=== PATIENT | female | born 1930 | race Caucasian/White ===

== ENCOUNTER 2016-08-31 06:30 | Inpatient (IN) ==
[2016-08-31] MEDS ORDERED: 0.9 % SODIUM CHLORIDE 1,000 ML IV ONE (06:55)
[2016-08-31] MEDS ORDERED: ONDANSETRON 4 MG/2 ML VIAL IV ONE (06:55)
[2016-08-31] MEDS ORDERED: diphenhydrAMINE 50 MG/ML VIAL IV ONE (06:55)
[2016-08-31] MEDS ORDERED: methylPREDNISolone SOD SUCC 125 MG/2 ML VIAL IV ONE (06:55)
--- NOTE | 2016-08-31 06:55 | Emergency Department Note ---
General Adult HPI - General Chief complaint: Skin/Abscess/Foreign Body Stated complaint: rash Time Seen by Provider: 08/31/16 06:51 Source: patient Mode of arrival: wheelchair Limitations: no limitations - History of Present Illness HPI Narrative: This patient was seen here 2 days ago with a urinary tract infection. She has developed a rash over her body which looks like hives. Continues to have a low- grade fever. Onset (ago): hour(s) Severity: moderate Quality: other (itching) Consistency: constant Improves with: none Worsens with: none - Related Data Home Medications Medication Instructions Recorded Confirmed cyanocobalamin (vitamin B-12) 2,500 mcg PO QDAY 06/22/16 07/05/16 2,500 mcg tablet Previous Rx's Medication Instructions Recorded Disabled Parking Permit #1 each 09/22/15 clopidogrel 75 mg tablet 75 mg PO QDAY #90 tab 10/05/15 OneTouch Verio strips See Dose Instructions .ROUTE 11/23/15 .MEDSUPPLY #100 each NS tiotropium bromide 18 mcg capsule 18 mcg INHALATION QDAY #60 puff 01/03/16 with inhalation device venlafaxine ER 75 mg 75 mg PO QDAY 90 Days 06/13/16 capsule,extended release 24 hr acetaminophen 120 mg-codeine 12 5 ml PO QID PRN #120 ml 06/14/16 mg/5 mL (5 mL) oral solution lidocaine 5 % topical patch 1 patch TOPICAL Q24H #10 patch 06/19/16 albuterol sulfate HFA 90 2 puff INHALATION .Q4-6H PRN #18 g 07/04/16 mcg/actuation aerosol inhaler levothyroxine 50 mcg capsule 50 mcg PO QDAY 90 Days 07/19/16 losartan 50 mg tablet 50 mg PO BID 90 Days 07/19/16 amlodipine 5 mg tablet 5 mg PO QDAY 90 Days 07/31/16 fluticasone 200 mcg-vilanterol 25 1 inh INHALATION QDAY #30 each 08/02/16 mcg/dose powder for inhalation oxycodone-acetaminophen 5 mg-325 1 tab PO BID 30 Days 08/04/16 mg tablet atorvastatin 80 mg tablet 80 mg PO QHS 90 Days 08/07/16 metformin 1,000 mg tablet 1,000 mg PO TID 90 Days 08/07/16 Allergies Allergy/AdvReac Type Severity Reaction Status Date / Time aspirin Allergy Swelling Verified 07/05/16 11:37 fluoxetine Allergy Delirium Verified 07/05/16 11:37 hydrocodone Allergy unknown Verified 07/05/16 11:37 lisinopril Allergy unknown Verified 07/05/16 11:37 Tetracycline Allergy unknown Verified 07/05/16 11:37 Review of Systems Constitutional: Reports: fever, chills Eyes: Denies: eye pain ENT ED: Denies: ear pain Cardiovascular: Denies: chest pain Respiratory: Denies: cough Gastrointestinal: Reports: nausea. Denies: abdominal pain Genitourinary: Denies: urgency Musculoskeletal: Denies: back pain Integumentary: Reports: rash Neurological: Denies: headache Past Medical History - Past Medical History Medical history: Reports: COPD, diabetes, GERD, hypertension, osteoporosis Physical Exam - General Limitations: no limitations General appearance: alert, in no apparent distress - Head Head exam: atraumatic, normocephalic - Eye Eye exam: Present: normal appearance - ENT ENT exam: normal exam - Neck Neck exam: Present: normal inspection - Chest Chest inspection: Present: normal inspection - Respiratory Respiratory exam: Present: other (some right upper lobe rhonchi). Absent: respiratory distress, wheezes - Cardiovascular Cardiovascular exam: Present: regular rate, normal rhythm, normal heart sounds - Abdominal Exam Abdominal exam: Present: soft. Absent: distention, tenderness - Neurological Exam Neurological exam: Present: alert - Psychiatric Psychiatric exam: Present: normal affect, normal mood - Skin Skin exam: Present: warm, dry, rash Course Vital Signs Temperature 100.6 F H 08/31/16 06:30 Pulse Rate 104 H 08/31/16 06:30 Respiratory Rate 19 08/31/16 06:30 Blood Pressure 114/79 08/31/16 06:30 Pulse Oximetry (%) 95 08/31/16 06:30 Temperature 100.6 F H 08/31/16 06:30 Pulse Rate 83 08/31/16 08:34 Respiratory Rate 19 08/31/16 06:30 Blood Pressure 135/49 08/31/16 08:34 Pulse Oximetry (%) 97 08/31/16 08:34 Medical Decision Making - Lab Data Lab results reviewed: Yes I reviewed the patient's lab results. Result diagrams: 08/31/16 07:00 08/31/16 07:00 Lab Results 08/31/16 08/31/16 08/31/16 Range/Units 07:00 07:00 07:00 WBC 13.2 H (4.5-11.0) K/mcL RBC 3.22 L (4.00-5.20) M/mcL Hgb 9.8 L (12.0-15.0) g/dL Hct 30.3 L (36.0-48.0) % MCV 94.3 (80.0-100.0) fL MCH 30.5 (26.0-34.0) pg MCHC 32.4 (31.0-36.0) g/dL RDW 14.1 (11.5-14.5) % Plt Count 407 (140-440) K/mcL MPV 7.1 L (7.4-10.4) fL Gran % 79.4 H (38.0-78.0) % Lymph % (Auto) 8.5 L (15.5-49.0) % [place] % (Auto) 11.2 H (1.0-9.0) % Eos % (Auto) 0.6 (0.0-7.0) % Baso % (Auto) 0.3 (0.0-2.0) % Gran # 10.5 H (1.8-8.0) K/mcL Lymph # 1.1 L (1.5-4.8) K/mcL [place] # 1.5 H (0.1-0.9) K/mcL Eos # 0.1 (0.0-0.7) K/mcL Baso # 0 (0.0-0.3) K/mcL VBG Lactic Acid 1.4 (0.5-2.2) mmol/L Sodium 128 L (133-145) mmol/L Potassium 4.3 (3.3-5.1) mmol/L Chloride 88 L (96-108) mmol/L Carbon Dioxide 25 (22-30) mmol/L Anion Gap 15.0 (8-16) BUN 8 (8-23) mg/dl Creatinine 0.8 (0.6-1.1) mg/dl GFR Calculation 67 Glucose 279 H (70-105) mg/dL Calcium 8.9 (8.6-10.4) mg/dl Total Bilirubin 0.5 (0.0-1.0) mg/dL AST 17 (0-37) U/l ALT 12 (0-40) U/l Alkaline Phosphatase 78 (39-117) U/L Total Protein 6.8 (5.9-8.4) gm/dL Albumin 3.5 (3.2-5.2) gm/dL Globulin 3.3 (2.2-3.7) gm/dL Albumin/Globulin Ratio 1.1 (1.0-2.3) Urine Color Urine Appearance Urine pH (5.0-9.0) Ur Specific [place] (1.000-1.035) Urine Protein (NEG) mg/dL Urine Glucose (UA) (NEG) mg/dL Urine Ketones (NEG) mg/dL Urine Occult Blood (<0.03) mg/dL Urine Nitrate (NEG) Urine Bilirubin (NEG) mg/dL Urine Urobilinogen (NEG) mg/dL Ur Leukocyte Esterase (NEG) /uL Ur Culture Indicated? 08/31/16 Range/Units 07:02 WBC (4.5-11.0) K/mcL RBC (4.00-5.20) M/mcL Hgb (12.0-15.0) g/dL Hct (36.0-48.0) % MCV (80.0-100.0) fL MCH (26.0-34.0) pg MCHC (31.0-36.0) g/dL RDW (11.5-14.5) % Plt Count (140-440) K/mcL MPV (7.4-10.4) fL Gran % (38.0-78.0) % Lymph % (Auto) (15.5-49.0) % [place] % (Auto) (1.0-9.0) % Eos % (Auto) (0.0-7.0) % Baso % (Auto) (0.0-2.0) % Gran # (1.8-8.0) K/mcL Lymph # (1.5-4.8) K/mcL [place] # (0.1-0.9) K/mcL Eos # (0.0-0.7) K/mcL Baso # (0.0-0.3) K/mcL VBG Lactic Acid (0.5-2.2) mmol/L Sodium (133-145) mmol/L Potassium (3.3-5.1) mmol/L Chloride (96-108) mmol/L Carbon Dioxide (22-30) mmol/L Anion Gap (8-16) BUN (8-23) mg/dl Creatinine (0.6-1.1) mg/dl GFR Calculation Glucose (70-105) mg/dL Calcium (8.6-10.4) mg/dl Total Bilirubin (0.0-1.0) mg/dL AST (0-37) U/l ALT (0-40) U/l Alkaline Phosphatase (39-117) U/L Total Protein (5.9-8.4) gm/dL Albumin (3.2-5.2) gm/dL Globulin (2.2-3.7) gm/dL Albumin/Globulin Ratio (1.0-2.3) Urine Color Straw Urine Appearance Clear Urine pH 6.0 (5.0-9.0) Ur Specific [place] 1.004 (1.000-1.035) Urine Protein Neg (NEG) mg/dL Urine Glucose (UA) 50 A (NEG) mg/dL Urine Ketones Neg (NEG) mg/dL Urine Occult Blood Neg (<0.03) mg/dL Urine Nitrate Neg (NEG) Urine Bilirubin Neg (NEG) mg/dL Urine Urobilinogen Neg (NEG) mg/dL Ur Leukocyte Esterase Neg (NEG) /uL Ur Culture Indicated? No - Radiology Data Radiology results reviewed: Yes I reviewed the patient's radiology results. ( chest x-ray shows a right upper lobe consolidation. This is new since June) Disposition Clinical Impression: Pneumonia Disposition: Xfer As Inpt ([facility]) Condition: Fair Referrals: Earle Renteria MD [Primary Care Provider] - Time of Disposition: 08:39
[2016-08-31 07:42] LABS: Appearance,Urine CLEAR; Bilirubin,Urine NEG (NEG); Color,Urine STRAW; Glucose,Urine (UA) 50 mg/dL (NEG); Leukocyte Esterase,Urine NEG /uL (NEG); Nitrate,Urine NEG (NEG); Protein,Urine NEG (NEG); Specific Gravity,Urine 1.004 (1.000-1.035); Urine Blood NEG mg/dL (<0.03); Urobilinogen,Urine NEG (NEG)
[2016-08-31 07:42] LABS: Basophils # (Auto) 0 K/mcL (0.0-0.3); Basophils % (Auto) 0.3 % (0.0-2.0); Eosinophils # (Auto) 0.1 K/mcL (0.0-0.7); Eosinophils % (Auto) 0.6 % (0.0-7.0); Granulocytes % (Auto) 79.4 % (38.0-78.0); Lymphocytes # (Auto) 1.1 K/mcL (1.5-4.8); Lymphocytes % (Auto) 8.5 % (15.5-49.0); Mean Cell Volume 94.3 fL (80.0-100.0); Mean Corpuscular HGB Conc 32.4 g/dL (31.0-36.0); Mean Corpuscular Hemoglobin 30.5 pg (26.0-34.0); Monocytes # (Auto) 1.5 K/mcL (0.1-0.9); Monocytes % (Auto) 11.2 % (1.0-9.0); Platelet Count 407 K/mcL (140-440); RBC 3.22 M/mcL (4.00-5.20); Red Cell Distribution Width 14.1 % (11.5-14.5)
[2016-08-31 08:05] LABS: ALT/SGPT 12 U/l (0-40); Albumin 3.5 gm/dL (3.2-5.2); Albumin/Globulin Ratio 1.1 (1.0-2.3); Alkaline Phosphatase 78 U/L (39-117); Blood Urea Nitrogen 8 mg/dl (8-23)
--- NOTE | 2016-08-31 08:13 | XRay Report ---
CLINICAL INFORMATION: Hypoxia TECHNIQUE: AP and lateral views obtained with the patient on a stretcher COMPARISON: Previous chest x-rays dated 08/29/2016 and 06/22/2016 FINDINGS: Left lung remains clear. No interval change. Persistent consolidation in the right upper lobe. This involves the anterior segment. Consolidation may be slightly more dense than on previous examination. Patient remains consistent with pneumonia. No abnormality was demonstrated on 06/22/2016 which makes post obstructive pneumonia secondary to neoplasm less likely. Continued follow-up radiographs are recommended. CT may be helpful to evaluate the right hilar region. No significant pleural effusion. Heart size and vascularity are normal. No pulmonary congestion. No pulmonary edema. IMPRESSION: 1. Consolidation in the anterior segment of the right upper lobe, essentially unchanged since 08/29/2016. 2. No new abnormalities. 3. Continued radiographic follow-up recommended. Interpreted and Authenticated by: Barrie Griffith 08/31/16
[2016-08-31] MEDS ORDERED: AZITHROMYCIN 500 MG in DEXTROSE 5% IN WATER 250 ML IV ONE (08:38)
[2016-08-31] MEDS ORDERED: cefTRIAXone 1 GM in DEXTROSE 5% IN WATER 50 ML IV ONE ×2 (08:38→13:00)
[2016-08-31] MEDS ORDERED: DEXTROSE 50% 50 ML VIAL IV PRN (10:18)
[2016-08-31] MEDS ORDERED: guaiFENesin/CODEINE 10 ML UDC PO PRN (10:18)
[2016-08-31] MEDS ORDERED: cefTRIAXone 2 GM in DEXTROSE 5% IN WATER 50 ML IV SCH (10:18)
[2016-08-31] MEDS ORDERED: ONDANSETRON 4 MG/2 ML VIAL IV PRN (10:18)
[2016-08-31] MEDS ORDERED: traZODone HCL 50 MG TABLET PO PRN (10:18)
[2016-08-31] MEDS ORDERED: MAGNESIUM SULFATE 2 GM/50 ML BAG IV PRN (10:18)
[2016-08-31] MEDS ORDERED: AZITHROMYCIN 500 MG in DEXTROSE 5% IN WATER 250 ML IV SCH (10:18)
[2016-08-31] MEDS ORDERED: POTASSIUM CHLORIDE 20 MEQ PACKET PO PRN (10:18)
[2016-08-31 10:39] LABS: C-Reactive Protein 14.4 mg/dl (0.0-0.8)
[2016-08-31] MEDS: 0.9 % SODIUM CHLORIDE 1,000 ML IV SCH (11:02)
[2016-08-31] MEDS: INSULIN LISPRO 1 UNIT/0.01 ML UNIT SQ SCH ×5 (11:03→23:14)
[2016-08-31] MEDS ORDERED: IPRATROPIUM/ALBUTEROL 3 ML AMPUL.NEB NEB ONE ×4 (11:06→22:07)
[2016-08-31] MEDS ORDERED: INSULIN LISPRO 1 UNIT/0.01 ML UNIT SQ ONE ×2 (11:38→20:31)
[2016-08-31] MEDS: IPRATROPIUM/ALBUTEROL 3 ML AMPUL.NEB NEB SCH ×4 (11:53→22:09)
--- NOTE | 2016-08-31 13:24 | History and Physical Report ---
DATE OF ADMISSION: 08/31/2016 REASON FOR ADMISSION: Worsening shortness of breath, fever or rash. HISTORY OF CHIEF COMPLAINT: The patient is an 86-year-old who was recently evaluated at [facility] ER and was diagnosed with UTI and discharged on ciprofloxacin. The patient, however, over the next couple of days has developed extensive rashes along with increasing shortness of breath. She comes back to [facility] Emergency Room where initial workup was significant for right upper lobe pneumonia, but negative UA. Antibiotic was switched to azithromycin/Rocephin in light of quinolone hypersensitivity reaction. Hospitalist Service was consulted in light of advanced age, right upper lobe pneumonia and failure to improve symptoms. At the time of examination, the patient is alert and oriented. She denies active distress. She is hard of hearing. She endorses to low grade fever, but denies shaking chills, drenching sweats, diarrhea, dysuria, headache, or photophobia. She further denies chest pain or palpitations. She does endorse to sick contacts. She is up to date on pneumonia vaccine. REVIEW OF SYSTEMS: Ten-point review of system was performed and negative except the ones discussed above. PAST MEDICAL HISTORY: 1. History of coronary artery disease. 2. Anxiety disorder. 3. Degenerative joint disease. 4. Hypothyroidism. 5. Hypertension. 6. Allergic rhinitis. 7. Hyperlipidemia. 8. Diabetes mellitus type 2. ALLERGIES: 1. ASPIRIN. 2. FLUXETINE. 3. LISINOPRIL. 4. TETRACYCLINE. 5. QUINOLONES. FAMILY HISTORY: Diabetes, [place]/CVA in son. SOCIAL HISTORY: No history of smoking or alcoholism. PHYSICAL EXAMINATION: GENERAL: The patient is hard of hearing but not in distress. BMI 19. Height 5 feet. VITAL SIGNS: Blood pressure 115/64, respiration rate 18, temperature 98.6, pulse 90, saturation 97% on 1 liter of oxygen. HEENT: Pupils symmetric. Oral cavity is dry. No ear or nose discharge. Head is normocephalic and atraumatic. NECK: No lymphadenopathy. HEART: S1, S2, regular rhythm. No murmur appreciated. Diminished breath sounds at bases, right anterior upper chest bronchial breath sounds. ABDOMEN: Soft and nontender. LOWER EXTREMITIES: No cyanosis or clubbing. No joint swelling. SKIN: No suspicious lesions. PSYCH: Alert, cooperative, and hard of hearing, but no agitation or hallucination. NEURO: Moving all 4 extremities, normal higher function. LABS AND IMAGING: White count 13.2, hemoglobin 9.8, neutrophils 80%, ESR 93. Lactic acid 1.4, sodium 120, potassium 4.3, creatinine 0.8, and BUN 8. Procalcitonin 0.26. CRP 14.4. UA unremarkable. X-ray chest: Consolidation in the anterior segment of right upper lobe. ASSESSMENT AND PLAN: An 86-year-old admitted with hypoxia along with rash secondary to drug hypersensitivity. 1. Community-acquired pneumonia. Continue antibiotic coverage with azithromycin/Rocephin and yu culture sputum exam, check strep pneumo and mycoplasma and also rule out noninfectious etiologies consolidation including mass lesion with a CT angiogram chest in the morning 2. Hypoxia secondary to above. Continue supplemental oxygen and pulmonary toilet. 3. Drug hypersensitivity, rash. List quinolones on allergy list. 4. Other prior medical issues will be managed on home medications, including history of coronary artery disease. Continue Plavix and statin along with NGA inhibitor. 5. Anxiety disorder. Continue venlafaxine. 6. Diabetes mellitus type 2. Continue sitagliptin/prandial insulin. 7. Hypertension. Continue losartan and amlodipine. PLAN FOR TODAY: 1. Admit as inpatient in light of CURB-65 score of 2 and pneumonia severity index 100. 2. Antibiotic coverage. 3. Preexisting medical condition management as above. AA:teodoro Job ID: [id number] Doc ID: [id number] Martinez LEWIS
[2016-08-31] MEDS: 0.9 % SODIUM CHLORIDE 10 ML SYRINGE IV SCH ×2 (15:44→21:43)
[2016-08-31] MEDS ORDERED: ACETAMINOPHEN 325 MG TABLET PO ONE (20:31)
[2016-08-31] MEDS: ACETAMINOPHEN 325 MG TABLET PO PRN (20:38)
[2016-08-31] MEDS ORDERED: DOCUSATE SODIUM 100 MG CAPSULE PO SCH (21:00)
[2016-08-31] MEDS ORDERED: SENNOSIDES/DOCUSATE SODIUM 1 TAB TABLET PO SCH (21:00)
[2016-08-31] MEDS ORDERED: HEPARIN 5,000 UNIT/ML VIAL SQ SCH (21:00)
[2016-08-31] MEDS: SENNOSIDES/DOCUSATE SODIUM 1 TAB TABLET PO SCH (21:42)
[2016-08-31] MEDS: DOCUSATE SODIUM 100 MG CAPSULE PO SCH (21:42)
[2016-08-31] MEDS: HEPARIN 5,000 UNIT/ML VIAL SQ SCH (21:42)
[2016-09-01] MEDS: ACETAMINOPHEN 1,000 MG/100 ML BOTTLE IV PRN (02:11)
[2016-09-01] MEDS: IPRATROPIUM/ALBUTEROL 3 ML AMPUL.NEB NEB SCH ×5 (02:38→23:30)
[2016-09-01] MEDS: 0.9 % SODIUM CHLORIDE 10 ML SYRINGE IV SCH ×3 (05:05→21:04)
[2016-09-01] MEDS ORDERED: IOPAMIDOL 100 ML BOTTLE IJ ONE (08:08)
[2016-09-01] MEDS ORDERED: ACETAMINOPHEN W/CODEINE 5 ML ORAL.SOL PO PRN (08:26)
[2016-09-01] MEDS: 0.9 % SODIUM CHLORIDE 1,000 ML IV SCH (08:37)
[2016-09-01] MEDS ORDERED: LOSARTAN 50 MG TABLET PO SCH (09:00)
[2016-09-01] MEDS ORDERED: sitaGLIPtin 100 MG TABLET PO SCH ×2 (09:00)
--- NOTE | 2016-09-01 09:17 | Cat Scan Report ---
CLINICAL INFORMATION: Right upper lobe pneumonia. COMPARISON: Previous chest x-rays dated 08/31/2016, 08/29/2016, 06/22/2016 TECHNIQUE: Axial contrast enhanced images through the chest. Sagittally and coronally reformatted images. MIP reformatted images. 60 mL nonionic contrast material injected intravenously. FINDINGS: Partial collapse and consolidation of the anterior segment of the right upper lobe. Appearance is consistent with pneumonia. No central obstructing lesion. No detectable endobronchial lesion. There is patchy infiltrate throughout the right upper lobe. There are noncalcified pulmonary parenchymal nodules in the right upper lobe. These are probably inflammatory. Follow-up CT scan is recommended. Left lung is negative. Right lower lobe is negative although there is compressive atelectasis. Bilateral pleural effusions. Right pleural effusion is moderate. Left pleural effusion is small. No evidence for loculation, no septations. No gas bubbles. No CT evidence for empyema. No hilar or mediastinal lymphadenopathy. No axillary adenopathy. No significant pleural effusion. There is calcified coronary artery disease. IMPRESSION: 1. Consolidation and volume loss. This is predominantly in the anterior segment of the right upper lobe. Patchy infiltrates throughout the right upper lobe with some nodularity. Appearance is consistent with pneumonia and follow-up CT scan is recommended 2. No central mass. No detectable endobronchial lesion 3. Bilateral pleural effusions, right larger than left. Interpreted and Authenticated by: Barrie Griffith 09/01/16
[2016-09-01] MEDS: diphenhydrAMINE 25 MG CAPSULE PO PRN ×2 (09:44→13:42)
[2016-09-01 09:59] LABS: Mean Cell Volume 94.9 fL (80.0-100.0); Mean Corpuscular HGB Conc 31.5 g/dL (31.0-36.0); Mean Corpuscular Hemoglobin 29.9 pg (26.0-34.0); Platelet Count 564 K/mcL (140-440); RBC 3.34 M/mcL (4.00-5.20); Red Cell Distribution Width 14.2 % (11.5-14.5)
[2016-09-01] MEDS: HEPARIN 5,000 UNIT/ML VIAL SQ SCH ×2 (10:14→20:59)
[2016-09-01] MEDS: DOCUSATE SODIUM 100 MG CAPSULE PO SCH ×2 (10:15→20:59)
[2016-09-01] MEDS: CLOPIDOGREL 75 MG TABLET PO SCH (10:15)
[2016-09-01] MEDS: LEVOTHYROXINE 50 MCG TABLET PO SCH (10:15)
[2016-09-01] MEDS: VENLAFAXINE 75 MG CAP.XL.24H PO SCH (10:15)
[2016-09-01] MEDS: amLODIPine 5 MG TABLET PO SCH (10:15)
[2016-09-01 10:25] LABS: ALT/SGPT 15 U/l (0-40); Albumin 3.2 gm/dL (3.2-5.2); Albumin/Globulin Ratio 0.9 (1.0-2.3); Alkaline Phosphatase 90 U/L (39-117); Bilirubin,Direct < 0.2 mg/dL (0.0-0.3); Blood Urea Nitrogen 11 mg/dl (8-23); Gamma Glutamyl Transpeptidase 22 U/L (5-36); Magnesium 1.4 mg/dL (1.6-2.5); Phosphorous 2.4 mg/dL (2.7-4.5); Uric Acid 3.5 mg/dL (2.5-8.0)
[2016-09-01] MEDS: MULTIVIT,THER IRON,CA,FA & MIN 1 TABLET PO SCH (10:36)
[2016-09-01] MEDS: cefTRIAXone 2 GM in DEXTROSE 5% IN WATER 50 ML IV SCH (10:36)
[2016-09-01 10:45] LABS: Acanthocytes OCC (NONE SEEN); Band Neutrophils % 6 % (0-10); Lymphocytes % 14 % (15-49); Monocytes % (Manual) 11 % (1-9); Myelocytes % 1 % (0-0); Platelet Estimate INCREASED (NORMAL); RBC Morphology ABNORMAL (NORMAL); Segmented Neutrophils % 68 % (38-78)
[2016-09-01] MEDS: TIOTROPIUM BROMIDE 18 MCG INHALANT INH SCH (10:50)
[2016-09-01] MEDS: INSULIN LISPRO 1 UNIT/0.01 ML UNIT SQ SCH ×5 (11:09→21:00)
--- NOTE | 2016-09-01 11:15 | Internal Med Progress Note ---
Medical - PN: Subj Patient information: Note initiated : 09/01/16 at 11:13 am Service Date, if different from initiated Date: [] Patient: Kaylen Alvarado 86 y/o F admitted on 08/31/16 for Pneumona, Hypoxia, Drug Hypersensitivity Rash. Chief Complaint: [] Interval history: 08/31-patient admitted with severe sepsis right upper lobe pneumonia along with acute drug reaction from quinolone. admitted as inpatient. On Zithromax/ Rocephin. Continue physical therapy. CT chest in a.m.to evaluate mass lesion. Continue as needed antihistamines for urticaria 09/01- white count and 19.4 up from 13.2. Patient however clinically feels better. continue antihistamines. Continue physical therapy. Case management to arrange SNF transfer. - Constitutional Vitals: Vital Signs Temp Pulse Resp BP Pulse Ox 97.4 F L 99 H 20 145/73 91 09/01/16 08:11 09/01/16 03:05 09/01/16 08:11 09/01/16 08:11 09/01/16 08:11 Period Temp Pulse Resp BP Sys/Serrano Pulse Ox Last 24 Hr 97.4 F-99.2 F 83-105 12-20 106-145/56-73 91-99 Intake and Output 08/31/16 09/01/16 09/01/16 21:59 05:59 13:59 Intake Total 240 / 240 350 / 350 1240 / 1240 Output Total 400 / 400 275 / 275 300 / 300 Balance -160 / -160 75 / 75 940 / 940 Weight 97 lb 8 oz Intake & Output: Intake & Output 08/31/16 09/01/16 09/01/16 21:59 05:59 13:59 Intake Total 240 / 240 350 / 350 1240 / 1240 Output Total 400 / 400 275 / 275 300 / 300 Balance -160 / -160 75 / 75 940 / 940 Weight 97 lb 8 oz Intake: IV 1000 / 1000 Sodium Chloride 0.9% 1, 1000 / 1000 000 ml @ 50 mls/hr IV . Q20H [facility] Rx#:[id number] Oral 240 / 240 350 / 350 240 / 240 Output: Void Amount 400 / 400 275 / 275 300 / 300 Other: Meal Dinner Breakfast Percent of Meal Consumed 50% 50% Feeding Ability Assist with Tray Set Up # Voids 1 # Bowel Movements 1 1 General appearance: cooperative, no acute distress Exam: generalized itching with urticarial lesions back and arm minimall anxiety nonlabored breathing abdomen soft Medical - PN: Obj Da - Labs CBC & Chem 7: 09/01/16 08:58 09/01/16 08:58 Labs: Abnormal Lab Results 09/01/16 09/01/16 08:58 08:58 WBC 19.4 H RBC 3.34 L Hgb 10.0 L Hct 31.7 L Plt Count 564 H MPV 7.2 L Lymphocytes % 14 L Monocytes % (Manual) 11 H Myelocytes % 1 H Acanthocytes (Spur) Occ A Sodium 130 L Chloride 89 L Anion Gap 18.0 H Glucose 289 H Calcium 8.3 L Phosphorus 2.4 L Magnesium 1.4 L Lactate Dehydrogenase 314 H Albumin/Globulin Ratio 0.9 L Meds: Medications Acetaminophen (Tylenol) 650 mg PO Q4-6HP PRN PRN Reason: PAIN/FEVER > 101 Last Admin: 08/31/16 20:38 Dose: 650 mg Acetaminophen/Codeine Phosphate (Tylenol W/Codeine) 5 ml PO QIDP PRN PRN Reason: cough Albuterol/Ipratropium (Duoneb) 3 ml NEB Q4HRT [facility] Last Admin: 09/01/16 02:38 Dose: 3 ml Amlodipine Besylate (Norvasc) 5 mg PO QDAY [facility] Last Admin: 09/01/16 10:15 Dose: 5 mg Atorvastatin Calcium (Lipitor) 80 mg PO HS [facility] Clopidogrel Bisulfate (Plavix) 75 mg PO QDAY [facility] Last Admin: 09/01/16 10:15 Dose: 75 mg Dextrose (Dextrose 50%) 0 ml IV UD PRN PRN Reason: Hypoglycemia Diagnostic Test (Pha) (Accu-Chek) 1 each FS ACHS [facility] Last Admin: 09/01/16 07:42 Dose: 1 each Diphenhydramine HCl (Benadryl) 25 mg PO Q4-6HP PRN PRN Reason: Allergic Symptoms Last Admin: 09/01/16 09:44 Dose: 25 mg Docusate Sodium (Colace) 100 mg PO BID [facility] Last Admin: 09/01/16 10:15 Dose: 100 mg Guaifenesin/Codeine Phosphate (Robitussin Ac) 10 ml PO Q4HP PRN PRN Reason: Cough Heparin Sodium (Porcine) (Heparin) 5,000 unit SQ Q12 [facility] Last Admin: 09/01/16 10:14 Dose: 5,000 unit Magnesium Sulfate (Magnesium Sulfate) 2 gm in 50 mls @ 50 mls/hr IV UD PRN PRN Reason: MG = or < 1.7 Sodium Chloride (Sodium Chloride 0.9%) 1,000 mls @ 50 mls/hr IV .Q20H [facility] Stop: 09/02/16 22:17 Last Admin: 09/01/16 08:37 Dose: 50 mls/hr Acetaminophen (Ofirmev) 1,000 mg in 100 mls @ 200 mls/hr IV Q6HP PRN PRN Reason: PAIN/FEVER > 101 Last Admin: 09/01/16 02:11 Dose: 200 mls/hr Azithromycin 500 mg/ Dextrose 250 mls @ 250 mls/hr IV Q24H [facility] Stop: 09/03/16 10:59 Ceftriaxone Sodium 2 gm/ (Dextrose) 50 mls @ 100 mls/hr IV Q24H [facility] Last Admin: 09/01/16 10:36 Dose: 100 mls/hr Insulin Human Lispro (Humalog) 0 unit SQ ACHS [facility] PRN Reason: Protocol Last Admin: 08/31/16 23:14 Dose: 6 unit Iron Carb/Multivit/Planishing Hammer Operator/Folic Acid (Multivitamin W/Minerals) 1 tab PO DAILY [facility] Last Admin: 09/01/16 10:36 Dose: Not Given Levothyroxine Sodium (Synthroid) 50 mcg PO QAMAC [facility] Last Admin: 09/01/16 10:15 Dose: 50 mcg Losartan Potassium (Cozaar) 50 mg PO BID [facility] Last Admin: 09/01/16 10:15 Dose: 50 mg Ondansetron HCl (Zofran) 4 mg IV Q4-6HP PRN PRN Reason: Nausea And Vomiting Potassium Chloride (Klor-Con) 40 meq PO DAILYP PRN PRN Reason: K+ < 3.5 Senna/Docusate Sodium (Senna Plus Tablet) 1 tab PO HS [facility] Last Admin: 08/31/16 21:42 Dose: 1 tab Sitagliptin Phosphate (Januvia) 100 mg PO DAILY [facility] Last Admin: 09/01/16 10:15 Dose: 100 mg Sodium Chloride (Saline Flush) 10 ml IV Q8 [facility] Last Admin: 09/01/16 05:05 Dose: Not Given Tiotropium Perry (Spiriva) 18 mcg INH QDAY [facility] Last Admin: 09/01/16 10:50 Dose: Not Given Trazodone HCl (Desyrel) 50 mg PO HSP PRN PRN Reason: Insomnia Venlafaxine HCl (Effexor Xr) 75 mg PO QDAY [facility] Last Admin: 09/01/16 10:15 Dose: 75 mg Medical - PN: A/P - Time Spent With Patient Total time spent is greater than 50% in coordination of care (as documented) at patient's floor/unit and/or counseling patient: 25 - 35 minutes (1) Community acquired pneumonia Status: Acute Assessment and plan: * Community acquired pneumonia-clinical improvement noted. Continue antibiotic coverage. * severe sepsis-worsening white count. Continue close monitoring * Drug-induced urticaria-econdary to quinolones. continue antihistamine/ prednisone. * Hypothyroidism continue thyroxine * Anxiety disorder continue venlafaxine * DM type II continue sliding scale insulin * DVT Prophylaxis on heparin plan * Broad antibiotic coverage * CT chest To rule out mass lesion * Prednisone/diphenhydramine for urticaria * pre-existing medical condition management as above Current Visit: Yes Medical - PN: Qual - VTE Deep Vein Thrombosis/Pulmonary Embolism Present on Admission: No
[2016-09-01] MEDS: AZITHROMYCIN 500 MG in DEXTROSE 5% IN WATER 250 ML IV SCH (11:19)
[2016-09-01] MEDS ORDERED: predniSONE 20 MG TABLET PO ONE (11:19)
[2016-09-01] MEDS ORDERED: ACETAMINOPHEN 325 MG TABLET PO ONE (19:23)
[2016-09-01] MEDS: ACETAMINOPHEN 325 MG TABLET PO PRN (19:33)
[2016-09-01] MEDS: SENNOSIDES/DOCUSATE SODIUM 1 TAB TABLET PO SCH (20:59)
[2016-09-01] MEDS: ATORVASTATIN 20 MG TABLET PO SCH (20:59)
[2016-09-01] MEDS: traZODone HCL 50 MG TABLET PO PRN (20:59)
[2016-09-02] MEDS: IPRATROPIUM/ALBUTEROL 3 ML AMPUL.NEB NEB SCH ×6 (02:59→23:20)
[2016-09-02] MEDS: 0.9 % SODIUM CHLORIDE 10 ML SYRINGE IV SCH ×3 (05:33→22:47)
[2016-09-02] MEDS: 0.9 % SODIUM CHLORIDE 1,000 ML IV SCH (05:33)
[2016-09-02 06:47] LABS: Mean Cell Volume 93.7 fL (80.0-100.0); Mean Corpuscular HGB Conc 31.8 g/dL (31.0-36.0); Mean Corpuscular Hemoglobin 29.8 pg (26.0-34.0); Platelet Count 402 K/mcL (140-440); RBC 2.69 M/mcL (4.00-5.20); Red Cell Distribution Width 14.2 % (11.5-14.5)
[2016-09-02 07:40] LABS: ALT/SGPT 15 U/l (0-40); Albumin 2.7 gm/dL (3.2-5.2); Alkaline Phosphatase 61 U/L (39-117); Bilirubin,Direct < 0.2 mg/dL (0.0-0.3); Blood Urea Nitrogen 13 mg/dl (8-23); Gamma Glutamyl Transpeptidase 15 U/L (5-36); Magnesium 1.5 mg/dL (1.6-2.5); Phosphorous 2.7 mg/dL (2.7-4.5); Uric Acid 3.3 mg/dL (2.5-8.0)
[2016-09-02 07:59] LABS: Band Neutrophils % 2 % (0-10); Lymphocytes % 6 % (15-49); Monocytes % (Manual) 7 % (1-9); Platelet Estimate NORMAL (NORMAL); RBC Morphology NORMAL (NORMAL); Segmented Neutrophils % 85 % (38-78)
[2016-09-02] MEDS: DOCUSATE SODIUM 100 MG CAPSULE PO SCH ×2 (09:03→20:27)
[2016-09-02] MEDS: VENLAFAXINE 75 MG CAP.XL.24H PO SCH (09:03)
[2016-09-02] MEDS: INSULIN LISPRO 1 UNIT/0.01 ML UNIT SQ SCH ×4 (09:03→20:32)
[2016-09-02] MEDS: HEPARIN 5,000 UNIT/ML VIAL SQ SCH ×2 (09:03→20:27)
[2016-09-02] MEDS: LEVOTHYROXINE 50 MCG TABLET PO SCH (09:03)
[2016-09-02] MEDS: CLOPIDOGREL 75 MG TABLET PO SCH (09:03)
[2016-09-02] MEDS: predniSONE 20 MG TABLET PO SCH (09:03)
[2016-09-02] MEDS: amLODIPine 5 MG TABLET PO SCH (09:03)
[2016-09-02] MEDS: MULTIVIT,THER IRON,CA,FA & MIN 1 TABLET PO SCH (09:04)
[2016-09-02] MEDS: diphenhydrAMINE 25 MG CAPSULE PO PRN ×2 (09:07→13:22)
--- NOTE | 2016-09-02 10:06 | Internal Med Progress Note ---
Medical - PN: Subj Patient information: Note initiated : 09/02/16 at 10:03 am Service Date, if different from initiated Date: [] Patient: Kaylen Alvarado 86 y/o F admitted on 08/31/16 for Pneumona, Hypoxia, Drug Hypersensitivity Rash. Chief Complaint: [] Interval history: 08/31-patient admitted with severe sepsis right upper lobe pneumonia along with acute drug reaction from quinolone. admitted as inpatient. On Zithromax/ Rocephin. Continue physical therapy. CT chest in a.m.to evaluate mass lesion. Continue as needed antihistamines for urticaria 09/01- white count and 19.4 up from 13.2. Patient however clinically feels better. continue antihistamines. Continue physical therapy. Case management to arrange SNF transfer. 09/02- patient feeling a lot better. Speech therapy eval not done as yet. Perform bedside swallow eval and start regular diet. No overnight fever chills nausea vomiting or concerns per staff. pre-existing medical conditions stable on home meds - Constitutional Vitals: Vital Signs Temp Pulse Resp BP Pulse Ox 97.6 F 100 H 20 110/65 96 09/02/16 07:24 09/02/16 07:30 09/02/16 07:30 09/02/16 07:24 09/02/16 07:24 Period Temp Pulse Resp BP Sys/Serrano Pulse Ox Last 24 Hr 96.7 F-98.2 F 93-110 18-24 99-133/63-74 95-98 Intake and Output 09/01/16 09/02/16 09/02/16 21:59 05:59 13:59 Intake Total 240 / 240 1400 / 1400 Output Total 300 / 300 Balance -60 / -60 1400 / 1400 Weight 98 lb 11.2 oz Intake & Output: Intake & Output 09/01/16 09/02/16 09/02/16 21:59 05:59 13:59 Intake Total 240 / 240 1400 / 1400 Output Total 300 / 300 Balance -60 / -60 1400 / 1400 Weight 98 lb 11.2 oz Intake: IV 1000 / 1000 Sodium Chloride 0.9% 1, 1000 / 1000 000 ml @ 50 mls/hr IV . Q20H [facility] Rx#:[id number] Oral 240 / 240 400 / 400 Output: Void Amount 300 / 300 Other: Meal Lunch Percent of Meal Consumed 50% # Voids 2 General appearance: cooperative, no acute distress Exam: lAlert and oriented sitting on chair nonlabored breathing No anxiety or agitation Medical - PN: Obj Da - Labs CBC & Chem 7: 09/02/16 05:05 09/02/16 05:05 Labs: Abnormal Lab Results 09/02/16 09/02/16 09/01/16 05:05 05:05 08:58 WBC RBC 2.69 L Hgb 8.0 L Hct 25.2 L Plt Count MPV 7.1 L Seg Neutrophils % 85 H Lymphocytes % 6 L Monocytes % (Manual) Myelocytes % Acanthocytes (Spur) Sodium 130 L Chloride 89 L Anion Gap 18.0 H Glucose 252 H 289 H Calcium 7.7 L 8.3 L Phosphorus 2.4 L Magnesium 1.5 L 1.4 L Lactate Dehydrogenase 314 H Total Protein 5.3 L Albumin 2.7 L Albumin/Globulin Ratio 0.9 L 09/01/16 08:58 WBC 19.4 H RBC 3.34 L Hgb 10.0 L Hct 31.7 L Plt Count 564 H MPV 7.2 L Seg Neutrophils % Lymphocytes % 14 L Monocytes % (Manual) 11 H Myelocytes % 1 H Acanthocytes (Spur) Occ A Sodium Chloride Anion Gap Glucose Calcium Phosphorus Magnesium Lactate Dehydrogenase Total Protein Albumin Albumin/Globulin Ratio Meds: Medications Acetaminophen (Tylenol) 650 mg PO Q4-6HP PRN PRN Reason: PAIN/FEVER > 101 Last Admin: 09/01/16 19:33 Dose: 650 mg Acetaminophen/Codeine Phosphate (Tylenol W/Codeine) 5 ml PO QIDP PRN PRN Reason: cough Albuterol/Ipratropium (Duoneb) 3 ml NEB Q4HRT [facility] Last Admin: 09/02/16 07:25 Dose: 3 ml Amlodipine Besylate (Norvasc) 5 mg PO QDAY [facility] Last Admin: 09/02/16 09:03 Dose: 5 mg Atorvastatin Calcium (Lipitor) 80 mg PO HS [facility] Last Admin: 09/01/16 20:59 Dose: 80 mg Clopidogrel Bisulfate (Plavix) 75 mg PO QDAY [facility] Last Admin: 09/02/16 09:03 Dose: 75 mg Dextrose (Dextrose 50%) 0 ml IV UD PRN PRN Reason: Hypoglycemia Diagnostic Test (Pha) (Accu-Chek) 1 each FS ACHS [facility] Last Admin: 09/02/16 07:03 Dose: 1 each Diphenhydramine HCl (Benadryl) 25 mg PO Q4-6HP PRN PRN Reason: Allergic Symptoms Last Admin: 09/02/16 09:07 Dose: 25 mg Docusate Sodium (Colace) 100 mg PO BID [facility] Last Admin: 09/02/16 09:03 Dose: 100 mg Guaifenesin/Codeine Phosphate (Robitussin Ac) 10 ml PO Q4HP PRN PRN Reason: Cough Heparin Sodium (Porcine) (Heparin) 5,000 unit SQ Q12 [facility] Last Admin: 09/02/16 09:03 Dose: 5,000 unit Magnesium Sulfate (Magnesium Sulfate) 2 gm in 50 mls @ 50 mls/hr IV UD PRN PRN Reason: MG = or < 1.7 Sodium Chloride (Sodium Chloride 0.9%) 1,000 mls @ 50 mls/hr IV .Q20H [facility] Stop: 09/02/16 22:17 Last Admin: 09/02/16 05:33 Dose: 50 mls/hr Acetaminophen (Ofirmev) 1,000 mg in 100 mls @ 200 mls/hr IV Q6HP PRN PRN Reason: PAIN/FEVER > 101 Last Admin: 09/01/16 02:11 Dose: 200 mls/hr Azithromycin 500 mg/ Dextrose 250 mls @ 250 mls/hr IV Q24H [facility] Stop: 09/03/16 10:59 Last Admin: 09/01/16 11:19 Dose: 250 mls/hr Ceftriaxone Sodium 2 gm/ (Dextrose) 50 mls @ 100 mls/hr IV Q24H [facility] Last Admin: 09/01/16 10:36 Dose: 100 mls/hr Insulin Human Lispro (Humalog) 0 unit SQ ACHS [facility] PRN Reason: Protocol Last Admin: 09/02/16 09:03 Dose: 4 unit Iron Carb/Multivit/[employer]/Folic Acid (Multivitamin W/Minerals) 1 tab PO DAILY [facility] Last Admin: 09/02/16 09:04 Dose: Not Given Levothyroxine Sodium (Synthroid) 50 mcg PO QAMAC [facility] Last Admin: 09/02/16 09:03 Dose: 50 mcg Ondansetron HCl (Zofran) 4 mg IV Q4-6HP PRN PRN Reason: Nausea And Vomiting Potassium Chloride (Klor-Con) 40 meq PO DAILYP PRN PRN Reason: K+ < 3.5 [facility]) [facility] Last Admin: 09/02/16 09:03 Dose: 20 mg Senna/Docusate Sodium (Senna Plus Tablet) 1 tab PO HS [facility] Last Admin: 09/01/16 20:59 Dose: 1 tab Sodium Chloride (Saline Flush) 10 ml IV Q8 [facility] Last Admin: 09/02/16 05:33 Dose: Not Given Tiotropium [place] (Spiriva) 18 mcg INH QDAY [facility] Last Admin: 09/01/16 10:50 Dose: Not Given Trazodone HCl (Desyrel) 50 mg PO HSP PRN PRN Reason: Insomnia Last Admin: 09/01/16 20:59 Dose: 50 mg Venlafaxine HCl (Effexor Xr) 75 mg PO QDAY [facility] Last Admin: 09/02/16 09:03 Dose: 75 mg Medical - PN: A/P - Time Spent With Patient Total time spent is greater than 50% in coordination of care (as documented) at patient's floor/unit and/or counseling patient: 15 - 24 minutes (1) Community acquired pneumonia Status: Acute Assessment and plan: * Community acquired pneumonia-clinical improvement noted on ABX. * Severe sepsis-clinically resolved. White count at 10.1 down from 19.4 * Drug-induced urticaria-Secondary to quinolones. clinical resolution noted on antihistamine/prednisone. * Bilateral pleural effusion. patient clinically improving. No indications for thoracentesis * Hypothyroidism continue thyroxine * Anxiety disorder continue venlafaxine * DM type II continue sliding scale insulin * DVT Prophylaxis on heparin plan * de-escalate antibiotics on discharge. Continue with through 09/06 * Prednisone/diphenhydramine for urticaria * pre-existing medical condition management as above * possible discharge in 24-48 hours Current Visit: Yes Medical - PN: Qual - VTE Deep Vein Thrombosis/Pulmonary Embolism Present on Admission: No
[2016-09-02] MEDS: TIOTROPIUM BROMIDE 18 MCG INHALANT INH SCH (10:14)
[2016-09-02] MEDS: cefTRIAXone 2 GM in DEXTROSE 5% IN WATER 50 ML IV SCH (10:32)
[2016-09-02] MEDS: AZITHROMYCIN 500 MG in DEXTROSE 5% IN WATER 250 ML IV SCH (11:15)
[2016-09-02] MEDS: ATORVASTATIN 20 MG TABLET PO SCH (20:27)
[2016-09-02] MEDS: SENNOSIDES/DOCUSATE SODIUM 1 TAB TABLET PO SCH (20:27)
[2016-09-02] MEDS: traZODone HCL 50 MG TABLET PO PRN (20:27)
[2016-09-02] MEDS: ACETAMINOPHEN 1,000 MG/100 ML BOTTLE IV PRN (20:41)
[2016-09-03] MEDS: diphenhydrAMINE 25 MG CAPSULE PO PRN ×2 (01:53→06:59)
[2016-09-03] MEDS: IPRATROPIUM/ALBUTEROL 3 ML AMPUL.NEB NEB SCH ×2 (03:35→07:20)
[2016-09-03 07:03] LABS: Mean Cell Volume 94.3 fL (80.0-100.0); Mean Corpuscular HGB Conc 31.7 g/dL (31.0-36.0); Mean Corpuscular Hemoglobin 29.8 pg (26.0-34.0); Platelet Count 489 K/mcL (140-440); RBC 3.09 M/mcL (4.00-5.20)
[2016-09-03] MEDS: amLODIPine 5 MG TABLET PO SCH (07:09)
[2016-09-03 07:38] LABS: ALT/SGPT 15 U/l (0-40); Albumin 3.1 gm/dL (3.2-5.2); Alkaline Phosphatase 67 U/L (39-117); Bilirubin,Direct < 0.2 mg/dL (0.0-0.3); Blood Urea Nitrogen 8 mg/dl (8-23); Gamma Glutamyl Transpeptidase 18 U/L (5-36); Magnesium 1.6 mg/dL (1.6-2.5); Phosphorous 2.1 mg/dL (2.7-4.5); Uric Acid 3.3 mg/dL (2.5-8.0)
[2016-09-03 07:52] LABS: Band Neutrophils % 5 % (0-10); Lymphocytes % 36 % (15-49); Monocytes % (Manual) 9 % (1-9); Platelet Estimate INCREASED (NORMAL); RBC Morphology ABNORM (NORMAL); Segmented Neutrophils % 50 % (38-78)
[2016-09-03] MEDS: 0.9 % SODIUM CHLORIDE 10 ML SYRINGE IV SCH (08:09)
[2016-09-03] MEDS: INSULIN LISPRO 1 UNIT/0.01 ML UNIT SQ SCH (08:39)
[2016-09-03] MEDS ORDERED: ASPIRIN 81 MG TAB.CHEW ONE (09:03)
[2016-09-03] MEDS ORDERED: ASPIRIN 81 MG TAB.CHEW CHEWED ONE (09:05)
[2016-09-03] MEDS ORDERED: NITROGLYCERIN 0.4 MG TAB.SUBL SL PRN ×2 (09:06→10:52)
[2016-09-03] MEDS ORDERED: NITROGLYCERIN 0.4 MG TAB.SUBL SL ONE (09:06)
[2016-09-03] MEDS ORDERED: CLOPIDOGREL 75 MG TABLET PO ONE (09:12)
[2016-09-03] MEDS: CLOPIDOGREL 75 MG TABLET PO SCH (09:15)
[2016-09-03] MEDS: HEPARIN 5,000 UNIT/ML VIAL SQ SCH (09:15)
[2016-09-03] MEDS: predniSONE 20 MG TABLET PO SCH (09:16)
[2016-09-03] MEDS ORDERED: FUROSEMIDE 20 MG/2 ML VIAL IV ONE ×2 (09:25→12:10)
[2016-09-03] MEDS: LEVOTHYROXINE 50 MCG TABLET PO SCH (09:39)
[2016-09-03] MEDS: DOCUSATE SODIUM 100 MG CAPSULE PO SCH (09:40)
[2016-09-03] MEDS: VENLAFAXINE 75 MG CAP.XL.24H PO SCH (09:40)
[2016-09-03] MEDS: cefTRIAXone 2 GM in DEXTROSE 5% IN WATER 50 ML IV SCH (09:43)
[2016-09-03] MEDS: MULTIVIT,THER IRON,CA,FA & MIN 1 TABLET PO SCH (09:47)
[2016-09-03] MEDS: TIOTROPIUM BROMIDE 18 MCG INHALANT INH SCH (09:47)
[2016-09-03 10:01] LABS: Creatine Kinase MB 6.6 ng/ml (0-2.9)
[2016-09-03 10:03] LABS: Blood Urea Nitrogen 8 mg/dl (8-23)
--- NOTE | 2016-09-03 10:10 | XRay Report ---
CLINICAL INFORMATION: Tachycardia. Pneumonia. Hypoxia. TECHNIQUE: Upright AP portable chest x-ray COMPARISON: Previous chest x-rays dated 08/31/2016 and 08/29/2016. Previous CT scan dated 09/01/2016. FINDINGS: Focal right perihilar pulmonary density consistent with volume loss and consolidation. Diffuse right-sided infiltrates. Worsened on previous examination. There is evidence for bilateral pleural effusions. These were better demonstrated on previous chest CT scan. No left lung consolidation. Pulmonary vascularity is increasingly prominent consistent pulmonary congestion. Mild interstitial edema is possible. IMPRESSION: 1. Increasing right-sided infiltrates. 2. Increased vascular prominence. Possible volume overload. 3. Changes consistent bilateral pleural effusions. These are better demonstrated on CT scan Interpreted and Authenticated by: Barrie Griffith 09/03/16
[2016-09-03] MEDS ORDERED: METOPROLOL TARTRATE 5 MG/5 ML VIAL IV ONE (10:14)
[2016-09-03] MEDS ORDERED: METOPROLOL TARTRATE 5 MG/5 ML VIAL IV SCH (10:30)
[2016-09-03] MEDS ORDERED: ONDANSETRON 4 MG/2 ML VIAL IV PRN (10:52)
[2016-09-03] MEDS ORDERED: ACETAMINOPHEN W/CODEINE 5 ML ORAL.SOL PO PRN (10:52)
[2016-09-03] MEDS ORDERED: MAGNESIUM SULFATE 2 GM/50 ML BAG IV PRN (10:52)
[2016-09-03] MEDS ORDERED: POTASSIUM CHLORIDE 20 MEQ PACKET PO PRN (10:52)
[2016-09-03] MEDS ORDERED: DEXTROSE 50% 50 ML VIAL IV PRN (10:52)
[2016-09-03] MEDS ORDERED: ACETAMINOPHEN 325 MG TABLET PO PRN (10:52)
[2016-09-03] MEDS ORDERED: ACETAMINOPHEN 1,000 MG/100 ML BOTTLE IV PRN (10:52)
[2016-09-03] MEDS ORDERED: guaiFENesin/CODEINE 10 ML UDC PO PRN (10:52)
[2016-09-03] MEDS ORDERED: diphenhydrAMINE 25 MG CAPSULE PO PRN (10:52)
[2016-09-03] MEDS ORDERED: 0.9 % SODIUM CHLORIDE 250 ML IV SCH (11:00)
[2016-09-03] MEDS ORDERED: IPRATROPIUM/ALBUTEROL 3 ML AMPUL.NEB NEB SCH (11:00)
[2016-09-03] MEDS ORDERED: HEPARIN/D5W 25,000 UNIT in PREMIX 1 BAG IV SCH (11:00)
[2016-09-03] MEDS ORDERED: NITROGLYCERIN/D5W 25 MG/250 ML BOTTLE IV SCH (11:00)
[2016-09-03] MEDS ORDERED: PREMIX 1 BAG IV ONE (11:18)
[2016-09-03] MEDS ORDERED: INSULIN LISPRO 1 UNIT/0.01 ML UNIT SQ SCH (11:30)
--- NOTE | 2016-09-03 11:37 | Transfer Summary ---
Transfer Discharge Sum: Prov Patient information: Note initiated : 09/03/16 at 11:19 am Service Date, if different from initiated Date: [] Patient: Kaylen Alvarado 86 y/o F admitted on 08/31/16 for Pneumona, Hypoxia, Drug Hypersensitivity Rash. Chief Complaint: [] Date of admission: 08/31/16 10:35 Discharge Date: 09/03/16 Primary care physician: [f_Reg Prim Care Provider] Transfer Discharge Sum: Diag - Discharge Diagnosis (1) Community acquired pneumonia Status: Acute Transfer Discharge Sum: Med - Medications Active and Home Medications: Home Medications clopidogrel 75 mg tablet 75 mg PO QDAY #90 tab 10/05/15 [Rx Confirmed 08/31/16] tiotropium bromide 18 mcg capsule with inhalation device 18 mcg INHALATION QDAY #60 puff 01/03/16 [Rx Confirmed 08/31/16] venlafaxine ER 75 mg capsule,extended release 24 hr 75 mg PO QDAY 90 Days [Rx Confirmed 08/31/16] acetaminophen 120 mg-codeine 12 mg/5 mL (5 mL) oral solution 5 ml PO QID PRN # 120 ml 06/14/16 [Rx Confirmed 09/01/16] lidocaine 5 % topical patch 1 patch TOPICAL Q24H #10 patch 06/19/16 [Rx Confirmed 08/31/16] cyanocobalamin (vitamin B-12) 2,500 mcg tablet 2,500 mcg PO QDAY 06/22/16 [ History Confirmed 08/31/16] albuterol sulfate HFA 90 mcg/actuation aerosol inhaler 2 puff INHALATION .Q4-6H PRN #18 g 07/04/16 [Rx Confirmed 09/01/16] levothyroxine 50 mcg capsule 50 mcg PO QDAY 90 Days 07/19/16 [Rx Confirmed 08/31] losartan 50 mg tablet 50 mg PO BID 90 Days 07/19/16 [Rx Confirmed 08/31/16] amlodipine 5 mg tablet 5 mg PO QDAY 90 Days 07/31/16 [Rx Confirmed 08/31/16] fluticasone 200 mcg-vilanterol 25 mcg/dose powder for inhalation 1 inh INHALATION QDAY #30 each 08/02/16 [Rx Confirmed 09/01/16] atorvastatin 80 mg tablet 80 mg PO QHS 90 Days 08/07/16 [Rx Confirmed 08/31/16] metformin 1,000 mg tablet 1,000 mg PO TID 90 Days 08/07/16 [Rx Confirmed ] oxycodone-acetaminophen 5 mg-325 mg tablet 1 tab PO BID 30 Days 08/31/16 [Rx Confirmed 09/01/16] Active Medications Acetaminophen (Tylenol) 650 mg PO Q4-6HP PRN PRN Reason: PAIN/FEVER > 101 Acetaminophen/Codeine Phosphate (Tylenol W/Codeine) 5 ml PO QIDP PRN PRN Reason: cough Albuterol/Ipratropium (Duoneb) 3 ml NEB Q4HRT [facility] Amlodipine Besylate (Norvasc) 5 mg PO QDAY [facility] Atorvastatin Calcium (Lipitor) 80 mg PO HS [facility] Clopidogrel Bisulfate (Plavix) 75 mg PO QDAY [facility] Dextrose (Dextrose 50%) 0 ml IV UD PRN PRN Reason: Hypoglycemia Diagnostic Test (Pha) (Accu-Chek) 1 each FS ACHS [facility] Diphenhydramine HCl (Benadryl) 25 mg PO Q4-6HP PRN PRN Reason: Allergic Symptoms Docusate Sodium (Colace) 100 mg PO BID [facility] Guaifenesin/Codeine Phosphate (Robitussin Ac) 10 ml PO Q4HP PRN PRN Reason: Cough Azithromycin 500 mg/ Dextrose 250 mls @ 250 mls/hr IV Q24H [facility] Stop: 09/06/16 10:59 Magnesium Sulfate (Magnesium Sulfate) 2 gm in 50 mls @ 50 mls/hr IV UD PRN PRN Reason: MG = or < 1.7 Acetaminophen (Ofirmev) 1,000 mg in 100 mls @ 200 mls/hr IV Q6HP PRN PRN Reason: PAIN/FEVER > 101 Ceftriaxone Sodium 2 gm/ (Dextrose) 50 mls @ 100 mls/hr IV Q24H [facility] Heparin Sodium/Dextrose 25,000 (unit/ Premix) 500 mls @ 12.44 mls/hr IV .Q24H [facility]; 14 UNIT/KG/HR PRN Reason: Protocol Nitroglycerin/Dextrose (Nitroglycerin/D5w) 25 mg in 250 mls @ 3 mls/hr IV .Q24H [facility]; 5 MCG/MIN PRN Reason: Protocol Sodium Chloride (Sodium Chloride 0.9%) 250 mls @ 20 mls/hr IV .[id number] [facility] Insulin Human Lispro (Humalog) 0 unit SQ ACHS [facility] PRN Reason: Protocol Iron Carb/Multivit/[employer]/Folic Acid (Multivitamin W/Minerals) 1 tab PO DAILY [facility] Levothyroxine Sodium (Synthroid) 50 mcg PO QAMAC [facility] Nitroglycerin (Nitrostat) 0.4 mg SL Q5M PRN PRN Reason: Chest Pain Ondansetron HCl (Zofran) 4 mg IV Q4-6HP PRN PRN Reason: Nausea And Vomiting Potassium Chloride (Klor-Con) 40 meq PO DAILYP PRN PRN Reason: K+ < 3.5 Prednisone (Prednisone) [facility] Senna/Docusate Sodium (Senna Plus Tablet) 1 tab PO HS [facility] Sodium Chloride (Saline Flush) 10 ml IV Q8 [facility] Tiotropium [employer] (Spiriva) 18 mcg INH QDAY [facility] Trazodone HCl (Desyrel) 50 mg PO HSP PRN PRN Reason: Insomnia Venlafaxine HCl (Effexor Xr) 75 mg PO QDAY [facility] Transfer Discharge Sum: Hosp Hospital course: TRANSFER DIAGNOSES * Acute coronary syndrome. Derrick NSTEMI -4 with elevated troponins, active chest pain. continue nitroglycerin/IV heparin. Status post Plavix/morphine/Lasix/ beta michell * Flash Pulmonary edema on IV Lasix. secondary to acute coronary syndrome. * acute hypoxic respiratory failure secondary to Flash pulmonary edema * right upper lobe Community acquired pneumonia-clinically improved on Rocephin/ okay * Severe sepsis-clinically resolved. White count at 11 down from 19.4 * Drug-induced urticaria-Secondary to quinolones. clinical resolution noted on antihistamine/prednisone . * Bilateral pleural effusion. patient clinically improving. consider thoracentesis if worsening * Hypothyroidism continue thyroxine * Anxiety disorder continue venlafaxine * DM type II continue sliding scale insulin [facility] Ms. Alvarado is a 86 year old female admitted with right upper lobe pneumonia and leukocytosis. 08/31-patient admitted with severe sepsis right upper lobe pneumonia along with acute drug reaction from quinolone. admitted as inpatient. On Zithromax/ Rocephin. Continue physical therapy. CT chest in a.m.to evaluate mass lesion. Continue as needed antihistamines for urticaria 09/01- white count and 19.4 up from 13.2. Patient however clinically feels better. continue antihistamines. Continue physical therapy. Case management to arrange SNF transfer. 09/02- patient feeling a lot better. Speech therapy eval not done as yet. Perform bedside swallow eval and start regular diet. No overnight fever chills nausea vomiting or concerns per staff. pre-existing medical conditions stable on home meds 09/03- around 8:30 AM patient to be significantly dyspneic and diaphoretic with hypoxia. patient has been on room air and then was started on 15 L oxygen. Stat blood gas 7.41/43/110 on 15 L oxygen. Stat chest x-ray flash pulmonary edema. cardiac enzymes ordered. Lasix. EKG left bundle branch block without significant change from previous in 2016. However tachycardia and 130. patient allergy to aspirin and hence, morphine/nitrate/Plavix/beta michell administered along with Lasix. Family emergently contacted as patient unable to decide and wants son Jj to be involved is the POA. I subsequently discussed the case with Dr. Geiger at [place] Who recommended [facility] Center transfer given lack of availability of cardiac thoracic surgery should patient need coronary artery bypass. troponins at 0.43 CK-MB 6.2. subsequently case discussed with Dr. Davie Solomon [place] [facility] who after reviewing patient's clinical picture accepted transfer if patient would be full code for procedure. Case discussed with patient's son JAVAN Gardner. He agreed to transfer andaggressive intervention including cardiac catheterization along with temporary mechanical ventilation if needed. Dr. Solomon recommended nitroglycerin drip/heparin drip in the interim along with Lasix until patient can be transferred to [place]. Patient has diuresed over 750 cc status post 20 Lasix IV. patient being transferred to [facility] ICU unclear ambulance rides. On 10 L oxygen. Chest pain has improved after nitroglycerin. patient be transferred via air ambulance. Heart rate have improved after administration of beta michell to mid 80s. - Time Spent with Patient Total time spent providing and/or coordinating transfer services: Greater than 30 minutes Transfer Discharge Sum: Exam - Constitutional Vitals: Vital Signs Temp Pulse Pulse Resp BP BP Pulse Ox 09/03/16 08:16 96 09/03/16 07:20 96.6 F L 122 H 107 H 28 H 148/77 96 09/03/16 04:00 98.0 F 98 H 16 112/65 96 09/03/16 00:00 97.9 F 98 H 18 108/66 97 09/02/16 20:00 98.0 F 120 H 20 135/76 96 09/02/16 18:17 98 H 20 09/02/16 16:00 108 H 20 113/60 90 09/02/16 14:17 98 H 20 09/02/16 11:53 97.6 F 97 H 20 127/60 97 Intake and Output 09/02/16 09/03/16 09/03/16 21:59 05:59 13:59 Intake Total 740 / 740 200 / 200 Output Total 1075 / 1075 Balance -335 / -335 200 / 200 Intake: IV 100 / 100 Oral 640 / 640 200 / 200 Output: Void Amount 1075 / 1075 Other: Meal Lunch Percent of Meal Consumed 50% # Voids 1 Weight 98 lb General appearance: no acute distress Transfer Discharge Sum: Data Procedures and tests throughout hospitalization: Pending Orders 08/31/16 15:41 Resuscitation Status Routine 09/01/16 Dinner Consistent Carbohydrate Diet 09/03/16 08:10 Sputum Culture and Gram Stain Routine 09/03/16 08:44 Blood gas, venous ONCE 09/03/16 08:50 PTINR [Prothrombin Time INR] Stat 09/03/16 10:52 Acetaminophen W/Codeine [Tylenol W/Codeine] 5 ml PO QIDP PRN Acetaminophen [Ofirmev] 1,000 mg in 100 ml IV Q6HP Acetaminophen [Tylenol] 650 mg PO Q4-6HP PRN Dextrose 50% See Dose Instructions IV UD PRN Magnesium Sulfate 2 gm in 50 ml IV UD Nitroglycerin [Nitrostat] 0.4 mg SL Q5M PRN Ondansetron [Zofran] 4 mg IV Q4-6HP PRN Potassium Chloride [Klor-Con] 40 meq PO DAILYP PRN diphenhydrAMINE [Benadryl] 25 mg PO Q4-6HP PRN guaiFENesin/CODEINE [Robitussin AC] 10 ml PO Q4HP PRN Nebulizer management .Routine 09/03/16 11:00 0.9 % Sodium Chloride [Sodium Chloride 0.9%] 250 ml IV 20 mls/hr Ipratropium/Albuterol [Duoneb] 3 ml NEB Q4HRT Nitroglycerin/D5w 25 mg in 250 ml IV 5 mcg/min Premix 1 bag Heparin/D5w 25,000 unit IV 14 unit/kg/hr 09/03/16 11:30 Accu-Chek 1 each FS ACHS Insulin Lispro [HumaLOG] 0 unit SQ ACHS 09/03/16 14:00 0.9 % Sodium Chloride [Saline Flush] 10 ml IV Q8 09/03/16 21:00 Atorvastatin [Lipitor] 80 mg PO HS Docusate Sodium [Colace] 100 mg PO BID Sennosides/Docusate Sodium [Senna Plus Tablet] 1 tab PO HS traZODone HCL [Desyrel] 50 mg PO HSP PRN 09/04/16 04:00 Complete Blood Count Man Dif DAILY Inpatient Panel DAILY 09/04/16 07:30 Levothyroxine [Synthroid] 50 mcg PO QAMAC 09/04/16 08:00 predniSONE 20 mg PO QAMCC 09/04/16 09:00 Clopidogrel [Plavix] 75 mg PO QDAY Multivit,Ther Iron,Ca,FA & Min [Multivitamin W/Minerals] 1 tab PO DAILY Tiotropium [employer] [Spiriva] 18 mcg INH QDAY Venlafaxine [Effexor Xr] 75 mg PO QDAY amLODIPine [Norvasc] 5 mg PO QDAY cefTRIAXone [Rocephin] 2 gm Dextrose 5% in Water 50 ml IV Q24H 09/04/16 10:00 Azithromycin [Zithromax] 500 mg Dextrose 5% in Water 250 ml IV Q24H 09/05/16 04:00 Complete Blood Count Man Dif DAILY Inpatient Panel DAILY Transfer Discharge Sum: A/P - Problem Maintenance (1) Community acquired pneumonia Status: Acute - Plan Functional capacity at transfer: bed bound Overall status at transfer: patient is not back to baseline Disposition: Xfer [facility] Hospital Quality Measure Queries - VTE Deep Vein Thrombosis/Pulmonary Embolism Present on Admission: No
[2016-09-03] MEDS: AZITHROMYCIN 500 MG in DEXTROSE 5% IN WATER 250 ML IV SCH (11:53)
[2016-09-03] MEDS ORDERED: 0.9 % SODIUM CHLORIDE 10 ML SYRINGE IV SCH (14:00)
[2016-09-03] MEDS ORDERED: HEPARIN 5,000 UNIT/ML VIAL SQ SCH (21:00)
[2016-09-03] MEDS ORDERED: SENNOSIDES/DOCUSATE SODIUM 1 TAB TABLET PO SCH (21:00)
[2016-09-03] MEDS ORDERED: DOCUSATE SODIUM 100 MG CAPSULE PO SCH (21:00)
[2016-09-03] MEDS ORDERED: ATORVASTATIN 20 MG TABLET PO SCH (21:00)
[2016-09-03] MEDS ORDERED: traZODone HCL 50 MG TABLET PO PRN (21:00)
[2016-09-04] MEDS ORDERED: LEVOTHYROXINE 50 MCG TABLET PO SCH (07:30)
[2016-09-04] MEDS ORDERED: predniSONE 20 MG TABLET PO SCH (08:00)
[2016-09-04] MEDS ORDERED: MULTIVIT,THER IRON,CA,FA & MIN 1 TABLET PO SCH (09:00)
[2016-09-04] MEDS ORDERED: TIOTROPIUM BROMIDE 18 MCG INHALANT INH SCH (09:00)
[2016-09-04] MEDS ORDERED: cefTRIAXone 2 GM in DEXTROSE 5% IN WATER 50 ML IV SCH (09:00)
[2016-09-04] MEDS ORDERED: amLODIPine 5 MG TABLET PO SCH (09:00)
[2016-09-04] MEDS ORDERED: CLOPIDOGREL 75 MG TABLET PO SCH (09:00)
[2016-09-04] MEDS ORDERED: VENLAFAXINE 75 MG CAP.XL.24H PO SCH (09:00)
[2016-09-04] MEDS ORDERED: AZITHROMYCIN 500 MG in DEXTROSE 5% IN WATER 250 ML IV SCH (10:00)
== END 2016-09-03 12:58 | disposition short-term general hospital (02) | DRG 871 ==
LOC: ED-MC 06:30 → ED 10:34 → MEDSUR 10:35
PROVIDERS: ADMIT Internal Medicine; ATTEND Internal Medicine